=== PATIENT | female | born 1965 | race Caucasian/White ===

== ENCOUNTER → 2019-01-31 | Outpatient (CLI) | payer OTHER ==
[2016-11-25 11:12] VITALS: BP 158/84
[~2019-01-31] MED LIST: ALPR0.25 PO; CETI-17 PO; FEXO180T81 PO; LAMO200T25 PO; MELO15TA23 PO; NORE1TAB27 PO; PANT40TA3 PO; RANI-376 PO; TOPI100T8 PO; VILA40TA PO; ZOLP10TA4 PO
--- NOTE | 2019-01-31 17:13 | KCIC ---
Bilateral digital screening mammograms with 3-D tomosynthesis: Reason for examination: Routine screening. Comparison is made to previous studies dated 04/01/2016 and 01/18/2013. Bilateral mammograms in CC and oblique projections were obtained with 2-D imaging and 3-D tomosynthesis imaging on a Siemens Inspiration unit and reviewed on the workstation. Interpretation was made with the benefit of CAD. The skin and nipples show no abnormalities. No abnormal axillary lymph nodes are seen. Bilateral breast implants remain in place. The breast parenchyma shows scattered fatty and fibroglandular density. (Breast density: Category B.) There are no dominant masses, suspicious calcifications or architectural distortion. Impression: No evidence of malignancy. Recommend routine screening. BI-RAD Category 1: Negative. "Our facility is accredited by the [employer] Mammography [employer]." This patient's information has been entered into a reminder system for the patient to be notified with the results of her examination and a target date for the next mammogram. Electronically signed by: Ирина Marion MD (01/31/2019 5:11 PM) [id number]
== END | disposition home or self-care (01) ==
LOC: KCIC MAMMO 11:52
PROVIDERS: ATTEND Obstetrics & Gynecology
DX: Z12.31 Encounter for screening mammogram for malignant neoplasm of breast (principal)
CPT/HCPCS: 77063; 77067

== ENCOUNTER → 2019-12-27 | Outpatient (CLI) | payer OTHER ==
[2016-11-25 11:12] VITALS: BP 158/84
[~2019-12-27] MED LIST changes: -PANT40TA3 PO; +PANT40TA77 PO
[2019-12-27 15:24] LABS: FREE T4 0.89 ng/dL (0.76-1.46); THYROID STIM HORMONE (TSH) 1.363 uIU/mL (0.358-3.74)
[2019-12-27 16:05] LABS: ALBUMIN 3.3 g/dL (3.4-5.0); ALBUMIN/GLOBULIN RATIO 0.8 (1.0-1.7); CALCIUM 8.4 mg/dL (8.5-10.1); TOTAL BILIRUBIN 0.2 mg/dL (0.2-1.0); TOTAL PROTEIN 7.4 g/dL (6.4-8.2)
[2020-01-02 03:08] LABS: CODFISH <0.10 kU/L (Class 0); CORN 0.29 kU/L (Class 0/I); EGG WHITE 0.52 kU/L (Class I); MILK 0.88 kU/L (Class II); PEANUT 1.05 kU/L (Class II); SCALLOP <0.10 kU/L (Class 0); SHRIMP 0.55 kU/L (Class I); SOYBEAN 1.86 kU/L (Class III); WALNUT 0.31 kU/L (Class 0/I); WHEAT 0.72 kU/L (Class II)
== END | disposition home or self-care (01) ==
LOC: LAB 11:07
PROVIDERS: ATTEND Otolaryngology
DX: K14.6 Glossodynia (principal)
CPT/HCPCS: 36415; 80053; 82607; 82728; 82746; 83540; 83550; 84207; 84425; 84439; 84443; 84630; 86001

== ENCOUNTER → 2020-01-02 | Outpatient (CLI) | payer OTHER ==
[2016-11-25 11:12] VITALS: BP 158/84
--- NOTE | 2020-01-02 15:33 | EKG ---
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
[2020-01-02 16:06] LABS: BASO % 0 % (0-3); EOS # 0.8 x10^3/uL (0.0-0.7); EOS % 7 % (0-3); HEMATOCRIT 33.4 % (36.0-47.0); HEMOGLOBIN 10.5 g/dL (12.0-15.5); LYMPH # 3.2 x10^3/uL (1.0-4.8); LYMPH % 28 % (24-48); MEAN CORPUSCULAR HEMOGLOBIN 24 pg (25-35); MEAN CORPUSCULAR HGB CONC 32 g/dL (31-37); MEAN CORPUSCULAR VOLUME 75 fL (79-100); MONO % 9 % (0-9); NEUT # 6.3 x10^3/uL (1.8-7.7); NEUT % 56 % (31-73); PLATELET COUNT 477 x10^3/uL (140-400); RED BLOOD COUNT 4.47 x10^6/uL (3.50-5.40); RED CELL DISTRIBUTION WIDTH 16.3 % (11.5-14.5); WHITE BLOOD COUNT 11.2 x10^3/uL (4.0-11.0)
[2020-01-02 16:28] LABS: ALBUMIN 3.2 g/dL (3.4-5.0); ALBUMIN/GLOBULIN RATIO 0.8 (1.0-1.7); CALCIUM 7.9 mg/dL (8.5-10.1); CREATININE 0.9 mg/dL (0.6-1.0); GFR 65.5; TOTAL BILIRUBIN 0.2 mg/dL (0.2-1.0); TOTAL PROTEIN 7.3 g/dL (6.4-8.2)
== END | disposition home or self-care (01) ==
LOC: LAB 10:45
PROVIDERS: ATTEND Psychiatry & Neurology Neurology
DX: R06.02 Shortness of breath (principal); R06.00 Dyspnea, unspecified; G93.2 Benign intracranial hypertension; H53.8 Other visual disturbances
CPT/HCPCS: 36415; 80053; 84443; 85025; 85651; 86141; 93005

== ENCOUNTER → 2020-04-03 | Outpatient (CLI) | payer OTHER ==
[2016-11-25 11:12] VITALS: BP 158/84
[~2020-04-03] MED LIST changes: +GADOTERATE 5 MMOL/10ML VIAL. IVP ONE; +LAMO25TA5 PO; +LORA2ORA7 PO; +TOPI25TA52 PO; +VENL37.5 PO; +ZOLP5TAB PO
--- NOTE | 2020-04-03 15:01 | RAD ---
MRI Brain with and without contrast History:Chronic headaches, difficulty verbalizing thoughts, repeating herself, pseudotumor cerebri syndrome, blurred vision bilaterally, visual field defect Technique: Multiplanar, multi sequential pre and postcontrast MR imaging was performed of the brain. Comparison: Findings: There is some motion. There is no evidence of recent infarct or cytotoxic edema. The ventricles, sulci, and cisterns are within normal limits in size and configuration. There is no significant midline shift, intraaxial mass effect, or focal abnormal extra-axial fluid collection. There is minimal T2 and FLAIR hyperintense signal of the supratentorial parenchyma bilaterally not associated with enhancement. There is no nodular parenchymal or leptomeningeal enhancement. There is preservation of the major intracranial flow-voids at the skull base. The cerebellar tonsils are normal in location. There is no significant abnormality of the pineal gland or pituitary gland. There is minimal ethmoid air cell and left sigmoid sinus mucosal thickening. The mastoid air cells are aerated. There is preserved marrow signal of the clivus. Impression: 1. There is mild T2 and FLAIR hyperintense signal of the supratentorial parenchyma bilaterally. Nonspecific findings could be associated with chronic microvascular ischemic disease. White matter changes can be seen in patients with migraine headaches if corresponding history. Pattern is not particularly suggestive of an inflammatory demyelinating disease. MRA Brain History:Chronic headaches, difficulty verbalizing thoughts, repeating herself, pseudotumor cerebri syndrome, blurred vision bilaterally, visual field defect Technique: 3-D [id number] MR angiography was performed of the brain. Comparison: None Findings: Determination of any degree of stenosis is based on NASCET criteria. There is some motion degradation. Both vertebral arteries constitute the basilar artery. Region of PICAs was not entirely included on this exam, partial visualization on the left. There is visualization of segments bilateral AICAs and superior cerebellar arteries. There are patent posterior communicating arteries bilaterally. No significant anterior communicating artery is visualized. No significant intracranial stenosis or aneurysm is identified. Impression: 1. No significant intracranial stenosis or aneurysm is identified. MR venogram without contrast History:Chronic headaches, difficulty verbalizing thoughts, repeating herself, pseudotumor cerebri syndrome, blurred vision bilaterally, visual field defect TECHNIQUE: Noncontrast MR venography was performed of the head. Comparison: None. Findings: No occlusive defect is identified of the major venous sinuses. Impression: 1. No occlusive defect is identified of the major venous sinuses. Electronically signed by: Matias Varghese MD (04/03/2020 2:58 PM) [id number]
--- NOTE | 2020-04-03 15:36 | CARD ---
MR#: [id number] Date of Study: 04/03/2020 Ordering Physician: RIDDHI BRANCH, Referring Physician: RIDDHI BRANCH, Tech: Deysi Farris APPROVED REPORT EXAM: Two-dimensional and M-mode echocardiogram with Doppler and color Doppler. Other Information Quality : AverageHR: 74bpm Technically limited study due to body habitus. INDICATION Dyspnea 2D DIMENSIONS RVDd3.0 (2.9-3.5cm)Left Atrium(2D)3.2 (1.6-4.0cm) IVSd1.0 (0.7-1.1cm)Aortic Root(2D)2.8 (2.0-3.7cm) LVDd4.4 (3.9-5.9cm)LVOT Diameter1.9 (1.8-2.4cm) PWd1.0 (0.7-1.1cm)LVDs3.0 (2.5-4.0cm) FS (%) 33.2 %SV55.3 ml Aortic Valve AoV Peak Hima.135.6cm/sAoV VTI29.8cm AO Peak GR.7.4mmHgLVOT Peak Hima.95.3cm/s LVOT VTI 21.08cmAO Mean GR.4mmHg ROGER (VMAX)1.00nn2GFC (VTI)2.04cm2 Mitral Valve MV E Qsofwizf13.8cm/sMV DECEL BAVP930jq MV A Cwnzvjkp26.0cm/sMV IVK96kp E/A Ratio0.9MVA (PHT)3.70cm2 TDI E/Lateral E'8.9E/Medial E'9.6 Pulmonary Valve PV Peak Aisyjnfr840.9cm/sPV Peak Grad.5mmHg Tricuspid Valve TR P. Ddnyajtl223ez/sRAP IFXMDHAM1ncVa TR Peak Gr.69upZrSNUU67aqUe Pulmonary Vein S1 Dfxmetzj98.2cm/sD2 Xqyjqxiz79.5cm/s PVa sjbujbvp029dsxd LEFT VENTRICLE The left ventricle is normal size. There is borderline concentric left ventricular hypertrophy. The l eft ventricular systolic function is normal and the ejection fraction is within normal range. The Eje ction Fraction is 55-60%. There is normal LV segmental wall motion. Transmitral Doppler flow pattern is Grade II-pseudonormal filling dynamics. RIGHT VENTRICLE The right ventricle is normal size. There is normal right ventricular wall thickness. The right ventr icular systolic function is normal. ATRIA The left atrium size is normal. The right atrium size is normal. The interatrial septum is intact wit h no evidence for an atrial septal defect or patent foramen ovale as noted on 2-D or Doppler imaging. AORTIC VALVE The aortic valve is normal in structure and function. Doppler and Color Flow revealed no significant aortic regurgitation. There is no significant aortic valvular stenosis. MITRAL VALVE The mitral valve is thickened but opens well. There is no evidence of mitral valve prolapse. There is no mitral valve stenosis. Doppler and Color-flow revealed trace mitral regurgitation. TRICUSPID VALVE The tricuspid valve is normal in structure and function. Doppler and Color Flow revealed trace tricus pid regurgitation with an estimated PAP of 29 mmHg. There is no tricuspid valve stenosis. PULMONIC VALVE The pulmonic valve is not well visualized. Doppler and Color Flow revealed trace pulmonic valvular re gurgitation. GREAT VESSELS The aortic root is normal in size. The ascending aorta is normal in size. The IVC is normal in size a nd collapses >50% with inspiration. PERICARDIAL EFFUSION There is no evidence of significant pericardial effusion. Critical Notification Critical Value: No <Conclusion> The left ventricle is normal size. The left ventricular systolic function is normal and the ejection fraction is within normal range. The Ejection Fraction is 55-60%. There is borderline concentric left ventricular hypertrophy. Doppler and Color Flow revealed no significant aortic regurgitation. There is no significant aortic valvular stenosis. Doppler and Color-flow revealed trace mitral regurgitation. Doppler and Color Flow revealed trace tricuspid regurgitation with an estimated PAP of 29 mmHg. Signed by : Eyal Locke MD Electronically Approved : 04/03/2020 15:35:26
== END ==
LOC: MRI 11:50
PROVIDERS: ATTEND Psychiatry & Neurology Neurology
DX: I51.7 Cardiomegaly (principal); G93.2 Benign intracranial hypertension; H53.8 Other visual disturbances; H53.40 Unspecified visual field defects
CPT/HCPCS: 70544; 70553; 93306; A9575

== ENCOUNTER → 2020-05-13 | Outpatient (CLI) | payer OTHER ==
[2016-11-25 11:12] VITALS: BP 158/84
[~2020-05-13] MED LIST changes: -GADOTERATE 5 MMOL/10ML VIAL. IVP ONE; +IOHEXOL 180 MG/ML 10 ML VIAL. ONE; +MEDR10TA3 PO; +methylPREDNISolone ACETATE 40 MG/ML VIAL. ONE; +methylPREDNISolone ACETATE 80 MG/ML VIAL. ONE
--- NOTE | 2020-05-13 15:02 | PAIN ---
DATE OF SERVICE: 05/13/2020 PROGRESS NOTE FOR PAIN CLINIC DIAGNOSIS: Lumbar radiculopathy with lumbar degenerative disk disease. HISTORY OF PRESENT ILLNESS: The patient is a 55-year-old female who returns for followup status post previous lumbar epidural steroid injections, last seen 02/2016. The patient did very well with about a 75% improvement in her low back and bilateral lower extremity pain. The patient reports the pain is returning now over the past several months, but has been worse over the past 2-3 months in the back for about a year or so, increasing pain in the low back and bilateral lower extremities, mostly in the posterior hips and gluteus, lateral thighs, anterior thighs, some in the medial knees as well, right essentially equal to left; worse with walking, standing, changing positions; better with sitting down or lying down, but awakens her occasionally from sleep at night, but not every night. The patient reports it does not affect her bowel or bladder control or ability to walk, but she does have some increased fatigability of the lower extremities secondary to pain. The patient reports the pain is constant, sharp, and stabbing in the low back, sometimes shooting and aching in the lower extremities, but not constantly. The patient reports no loss of motor function, no new bowel or bladder incontinence or other motor function deficits at this time. The patient reports she has been treated for chronic migraine headaches as well with Neurology. REVIEW OF SYSTEMS: The patient's review of systems is positive for those items mentioned in history of present illness. All systems reviewed and otherwise negative. It is complete, full, and well documented on the patient's chart. PHYSICAL EXAMINATION: VITAL SIGNS: The patient's blood pressure is 150/95, pulse 88, respirations 18, temperature 98.8 degrees Fahrenheit, weight is 221 pounds. GENERAL: The patient is awake, alert, oriented, appropriate, very pleasant demeanor. HEENT: Shows normocephalic, atraumatic. Extraocular movements are intact and symmetrical. Oral cavity shows mucous membranes moist and pink. Dentition is intact. NECK: Shows anterior throat supple without palpable lymphadenopathy noted. Swallow reflex symmetrical. CHEST: Shows normal on inspection. Breath sounds are clear to auscultation bilaterally. No rales, rhonchi, or wheezes auscultated. HEART: Shows S1, S2 clear. No murmurs auscultated. ABDOMEN: Obese, soft, nontender, nondistended. No palpable organomegaly is noted. No rebound or guarding demonstrated. BACK: Shows spine grossly in the midline. Slight exaggerated thoracic kyphosis and minor flattening of lumbar lordotic curvature. Lumbar paraspinous muscle shows symmetrical on inspection, with palpation shows some moderate tenderness diffusely throughout the upper, middle, and lower distribution of paraspinous muscles as well as slightly into the inferior aspect of the thoracic paraspinous musculature bilaterally, but again symmetrical without evidence of atrophy, hypertrophy. No trigger points, no radiation of pain. The patient has good rotational motion of lumbar spine, both laterally as well as extension and flexion without difficulty. No tenderness over the spinous processes or the sacrum. Minor tenderness over the posterior superior iliac spines bilaterally, but without radiation. EXTREMITIES: The patient's lower extremities show deep tendon reflexes at 2+ in the patellar, 1+ tendo-calcaneus tendons. Motor exam is strong with dorsiflexion, extension, quadriceps, and hamstring flexion rated at 5/5 and equal. Peripheral pulses are 1+ posterior tibia. No peripheral edema is noted bilaterally. Options were discussed with the patient. The patient's old chart was reviewed as her current medication regimen updated. Current review of systems updated today as well. We will proceed with a lumbar epidural steroid injection today with fluoroscopic guidance. Risks were discussed including but not limited to bleeding, infection, possibility of epidural hematoma, subsequent neurological compromise, dural puncture, headaches, spinal cord and/or nerve damage, side effects of steroid medication and poor results regarding pain control. The patient understands and wished to proceed. The patient will return to clinic in approximately 2 weeks for followup. She was counseled on return appointment, activity level, and side effects to be aware of. DIAGNOSIS: Lumbar radiculopathy with lumbar degenerative disk disease. PROCEDURE: Lumbar epidural steroid injection, translaminar approach at L4-L5 level using C-arm fluoroscopic guidance under sterile prep and drape using local anesthetic. MEDICATION INJECTED: A total of 120 mg Depo-Medrol plus 10 mL of preservative-free normal saline and 2 mL of contrast. CONDITION AT DISCHARGE: Stable. The patient tolerated procedure well, had no complications. ANEUDY HUSSEIN MD DR: MARTHA/ana maria JOB#: [id number] / [id number]
== END | disposition home or self-care (01) ==
LOC: PNCL 13:26
PROVIDERS: ATTEND Anesthesiology
DX: M51.16 Intervertebral disc disorders with radiculopathy, lumbar region (principal); G43.909 Migraine, unspecified, not intractable, without status migrainosus; Z88.0 Allergy status to penicillin; Z79.899 Other long term (current) drug therapy
CPT/HCPCS: 62323; J1030; J1040; Q9965

== ENCOUNTER → 2020-07-01 | Outpatient (CLI) | payer OTHER ==
[2016-11-25 11:12] VITALS: BP 158/84
[~2020-07-01] MED LIST changes: -IOHEXOL 180 MG/ML 10 ML VIAL. ONE; -methylPREDNISolone ACETATE 40 MG/ML VIAL. ONE; -methylPREDNISolone ACETATE 80 MG/ML VIAL. ONE
== END | disposition home or self-care (01) ==
LOC: LAB 11:20
PROVIDERS: ATTEND Psychiatry & Neurology Neurology with Special Qualifications in Child Neurology
DX: R79.82 Elevated C-reactive protein (CRP) (principal)
CPT/HCPCS: 36415; 86140

== ENCOUNTER → 2020-08-15 | Outpatient (CLI) | payer OTHER ==
[2016-11-25 11:12] VITALS: BP 158/84
[~2020-08-15] MED LIST changes: +CETI10TA74 PO; +FAMO40TA4 PO; +FLUT16SP NS; +LITH450T PO; +ZOLP10TA PO
== END ==
LOC: LAB 14:08
PROVIDERS: ATTEND Ophthalmology
DX: Z01.812 Encounter for preprocedural laboratory examination (principal); Z20.828 Contact with and (suspected) exposure to other viral communicable diseases; H26.9 Unspecified cataract
CPT/HCPCS: U0003

== ENCOUNTER 2020-08-20 10:30 | Day surgery (SDC) | payer OTHER ==
[~2020-08-20 10:30] MED LIST changes: +CHONDROIT-SOD-HYALURONATE KIT. ONE; +CHONDROITIN-SOD-HYALURONATE 0.5 ML DISP.SYRIN. ONE; +CIPROFLOXACIN 0.3% OPHTH SOLUTION 5ML BOTTLE. OD ONE; +HYDROmorphone 2 MG/ML VIAL IV PRN; +IV RINGERS,LACTATED 1000ML 1,000 ML IV SCH; +LIDOCAINE 1%/PHENYLEPH 1.5% PF OPHTH 1 ML VIAL. ONE; +LIDOCAINE 2% JELLY 6ML IN APPLICATOR. OD ONE; +MORPHINE SULFATE 2 MG/ML VIAL. IV PRN; +NEO/POLYMYX/DEXAMETH OPHTH OINTMENT 3.5GM TUBE. ONE; +ONDANSETRON PF 4 MG/2 ML VIAL. IV PRN; +PROCHLORPERAZINE 10 MG/2 ML VIAL. IV PRN; +PROPARACAINE 0.5% OPHTH SOLUTION 15ML BOTTLE. OD ONE; +fentaNYL PF VIAL 100 MCG/2 ML VIAL IV PRN
[2020-08-20] MEDS: CYCLOPENTOLATE 1% OPHTH SOLUTION 2ML BOTTLE. OD SCH ×3 (11:02→11:12)
[2020-08-20] MEDS: PHENYLEPHRINE 10% OPHTH SOLUTION 5ML BOTTLE. OD SCH ×3 (11:02→11:12)
[2020-08-20] MEDS ORDERED: MIDAZOLAM HCL/PF 2 MG/2 ML VIAL. ONE (11:06)
[2020-08-20 13:15] VITALS: BP 156/76
--- NOTE | 2020-08-20 14:02 | OP ---
DATE OF SURGERY: 08/20/2020 PREOPERATIVE DIAGNOSIS: Cataract of the right eye. PROCEDURE: Phacoemulsification with posterior chamber intraocular lens implantation of the right eye. INDICATION: Painless progressive visual loss and difficulty reading and driving. SURGEON: Elba Iraheta MD ANESTHESIA: Topical with monitored anesthesia care. DESCRIPTION OF PROCEDURE: The right eye was prepped with Betadine in the usual sterile fashion and draped. A paracentesis was performed followed by instillation of preservative-free lidocaine admixed with phenylephrine and balanced salt solution. A temporal clear corneal incision was made followed by instillation of viscoelastic and a capsulorrhexis was performed. Hydrodissection was used to prolapse the nucleus at the pupillary plane and then evacuated with the phacoemulsification handpiece. The I/A handpiece was used to remove the remainder of the cortex and ir[place]i the capsule. Please note that the wang had been preplaced prior to the surgery to support an axis of 009. The lens, which was a TF Damian TFNT30 was injected into the capsular bag and the orientation was positioned at the preplaced wang at 009. Balanced salt solution was used to hydrate the corneal wounds and the viscoelastic was evacuated both posterior and anterior to the intraocular lens and once the lens was within the proper orientation and no leak was noted, Maxitrol was placed on the eye and the eye shielded and the patient was sent to the recovery room uneventfully. ELBA IRAHETA MD DR: ANAY/ana maria JOB#: [id number] / [id number]
== END 2020-08-20 13:45 | disposition home or self-care (01) ==
LOC: SURG 10:30
PROVIDERS: ATTEND Ophthalmology
DX: H26.8 Other specified cataract (principal); H54.7 Unspecified visual loss; Z88.0 Allergy status to penicillin; Z79.899 Other long term (current) drug therapy
CPT/HCPCS: 66984; 81025; J0171; J2250; J3490

== ENCOUNTER → 2020-08-27 | Day surgery (SDC) | payer OTHER ==
[~2020-08-27] MED LIST changes: +BALANCED SALT IRRIG OPHTH SOLN 15 ML BOTTLE. ONE; -CIPROFLOXACIN 0.3% OPHTH SOLUTION 5ML BOTTLE. OD ONE; +CIPROFLOXACIN 0.3% OPHTH SOLUTION 5ML BOTTLE. OS ONE; +GENTAMICIN SULFATE/PF 4 MG, EPINEPHrine 0.5 MG in BALANCED SALT IRR SOLN (BAG) 500 ML IO ONE; -LIDOCAINE 2% JELLY 6ML IN APPLICATOR. OD ONE; +LIDOCAINE 2% JELLY 6ML IN APPLICATOR. ONE; +LIDOCAINE 2% JELLY 6ML IN APPLICATOR. OS ONE; +MIDAZOLAM HCL/PF 2 MG/2 ML VIAL. ONE; -PROPARACAINE 0.5% OPHTH SOLUTION 15ML BOTTLE. OD ONE; +PROPARACAINE 0.5% OPHTH SOLUTION 15ML BOTTLE. OS ONE
[2020-08-27] MEDS: CYCLOPENTOLATE 2% OPHTH SOLUTION 2ML BOTTLE. OS SCH ×2 (11:39→11:45)
[2020-08-27] MEDS: PHENYLEPHRINE 10% OPHTH SOLUTION 5ML BOTTLE. OS SCH ×3 (11:39→11:50)
[2020-08-27 13:00] VITALS: BP 161/84
== END | disposition home or self-care (01) ==
LOC: SURG 10:49
PROVIDERS: ATTEND Ophthalmology
DX: H25.89 Other age-related cataract (principal); Z53.8 Procedure and treatment not carried out for other reasons; K21.9 Gastro-esophageal reflux disease without esophagitis; E66.09 Other obesity due to excess calories; M19.90 Unspecified osteoarthritis, unspecified site; F41.9 Anxiety disorder, unspecified; F32.9 Major depressive disorder, single episode, unspecified; Z79.899 Other long term (current) drug therapy; Z98.890 Other specified postprocedural states; Z88.0 Allergy status to penicillin
CPT/HCPCS: 81025; J2250; J3490; J0171; J1580

== ENCOUNTER 2020-08-29 10:25 | Day surgery (SDC) | payer OTHER ==
[~2020-08-29 10:25] MED LIST changes: +LIDOCAINE 1% PF 2 ML VIAL. ID PRN; -MIDAZOLAM HCL/PF 2 MG/2 ML VIAL. ONE
[2020-08-29] MEDS ORDERED: MIDAZOLAM HCL/PF 2 MG/2 ML VIAL. ONE ×2 (10:49→12:35)
[2020-08-29] MEDS: PHENYLEPHRINE 10% OPHTH SOLUTION 5ML BOTTLE. OS SCH ×3 (11:02→11:13)
[2020-08-29] MEDS: CYCLOPENTOLATE 2% OPHTH SOLUTION 2ML BOTTLE. OS SCH ×3 (11:15→11:25)
[2020-08-29 13:10] VITALS: BP 147/74
--- NOTE | 2020-08-29 13:31 | OP ---
DATE OF SURGERY: 08/29/2020 PREOPERATIVE DIAGNOSIS: Cataract of the left eye. PROCEDURE: Phacoemulsification with posterior chamber intraocular lens implantation of the left eye. INDICATION: Painless progressive visual loss and visually significant cataract and difficulty reading. SURGEON: Elba Iraheta MD ANESTHESIA: Topical with monitored anesthesia care. DESCRIPTION OF PROCEDURE: The left eye was prepped with Betadine in the usual sterile fashion and draped. A paracentesis was performed followed by instillation of preservative-free phenylephrine admixed with balanced salt solution. A temporal clear corneal incision was made and viscoelastic was injected in the anterior chamber. A capsulorrhexis was performed followed by hydroexpression of the nucleus to the pupillary plane for which a Viscoat sandwich was made both anterior and posterior to the nucleus. The phacoemulsification handpiece was used to remove the nucleus and the I/A handpiece used to remove the cortex. There was a vacuum the posterior capsule for the adherent capsular cataract. Viscoelastic was then injected in the capsular bag and an Damian model TFNT 00 with a power of 9.5 diopters was placed into the capsular bag. Balanced salt solution was used to hydrate the corneal wounds and the viscoelastic evacuated with the I/A handpiece. Once no leak was noted, Maxitrol was placed on the eye and the eye shielded and the patient was sent to the recovery room uneventfully. ELBA IRAHETA MD DR: ANAY/ana maria JOB#: [id number] / [id number]
== END 2020-08-29 13:50 | disposition home or self-care (01) ==
LOC: SURG 10:25
PROVIDERS: ATTEND Ophthalmology
DX: H25.89 Other age-related cataract (principal); H54.7 Unspecified visual loss; K21.9 Gastro-esophageal reflux disease without esophagitis; E66.9 Obesity, unspecified; F41.9 Anxiety disorder, unspecified; F32.9 Major depressive disorder, single episode, unspecified; M19.90 Unspecified osteoarthritis, unspecified site; Z88.0 Allergy status to penicillin; Z79.899 Other long term (current) drug therapy; Z98.890 Other specified postprocedural states
CPT/HCPCS: 66984; 81025; J0171; J1580; J2250; J3490; V2788

== ENCOUNTER → 2022-02-23 | Outpatient (CLI) | payer OTHER ==
[~2022-02-23] MED LIST changes: -BALANCED SALT IRRIG OPHTH SOLN 15 ML BOTTLE. ONE; -CHONDROIT-SOD-HYALURONATE KIT. ONE; -CHONDROITIN-SOD-HYALURONATE 0.5 ML DISP.SYRIN. ONE; -CIPROFLOXACIN 0.3% OPHTH SOLUTION 5ML BOTTLE. OS ONE; -GENTAMICIN SULFATE/PF 4 MG, EPINEPHrine 0.5 MG in BALANCED SALT IRR SOLN (BAG) 500 ML IO ONE; -HYDROmorphone 2 MG/ML VIAL IV PRN; -IV RINGERS,LACTATED 1000ML 1,000 ML IV SCH; -LIDOCAINE 1% PF 2 ML VIAL. ID PRN; -LIDOCAINE 1%/PHENYLEPH 1.5% PF OPHTH 1 ML VIAL. ONE; -LIDOCAINE 2% JELLY 6ML IN APPLICATOR. ONE; -LIDOCAINE 2% JELLY 6ML IN APPLICATOR. OS ONE; -MORPHINE SULFATE 2 MG/ML VIAL. IV PRN; -NEO/POLYMYX/DEXAMETH OPHTH OINTMENT 3.5GM TUBE. ONE; -ONDANSETRON PF 4 MG/2 ML VIAL. IV PRN; -PROCHLORPERAZINE 10 MG/2 ML VIAL. IV PRN; -PROPARACAINE 0.5% OPHTH SOLUTION 15ML BOTTLE. OS ONE; -fentaNYL PF VIAL 100 MCG/2 ML VIAL IV PRN
== END ==
LOC: LAB 15:42
PROVIDERS: ATTEND Psychiatry & Neurology Neurology with Special Qualifications in Child Neurology
DX: R79.82 Elevated C-reactive protein (CRP) (principal)
CPT/HCPCS: 36415; 86141

== ENCOUNTER → 2022-03-23 | Outpatient (CLI) | payer OTHER ==
[2022-03-23 13:50] LABS: BASO # 0.1 x10^3/uL (0.0-0.2); BASO % 1 % (0-3); EOS # 0.5 x10^3/uL (0.0-0.7); EOS % 5 % (0-3); HEMATOCRIT 33.6 % (36.0-47.0); HEMOGLOBIN 10.3 g/dL (12.0-15.5); LYMPH # 3.3 x10^3/uL (1.0-4.8); LYMPH % 32 % (24-48); MEAN CORPUSCULAR HEMOGLOBIN 21 pg (25-35); MEAN CORPUSCULAR HGB CONC 31 g/dL (31-37); MEAN CORPUSCULAR VOLUME 69 fL (79-100); MONO # 0.6 x10^3/uL (0.0-1.1); MONO % 6 % (0-9); NEUT # 5.9 x10^3/uL (1.8-7.7); NEUT % 57 % (31-73); PLATELET COUNT 433 x10^3/uL (140-400); RED BLOOD COUNT 4.87 x10^6/uL (3.50-5.40); RED CELL DISTRIBUTION WIDTH 18.1 % (11.5-14.5); WHITE BLOOD COUNT 10.5 x10^3/uL (4.0-11.0)
[2022-03-23 14:14] LABS: ALBUMIN 3.4 g/dL (3.4-5.0); ALBUMIN/GLOBULIN RATIO 0.8 (1.0-1.7); CALCIUM 8.4 mg/dL (8.5-10.1); CREATININE 1.1 mg/dL (0.6-1.0); GFR 51.4; POTASSIUM 4.1 mmol/L (3.5-5.1); TOTAL BILIRUBIN 0.4 mg/dL (0.2-1.0); TOTAL PROTEIN 7.8 g/dL (6.4-8.2)
[2022-03-23 14:17] LABS: HYPOCHROMIA SLIGHT; PLT ESTIMATE INCREASED (ADEQUATE)
[2022-03-23 14:18] LABS: ANISOCYTOSIS SLIGHT; MICROCYTOSIS SLIGHT
[2022-03-23 14:40] LABS: CHOLESTEROL/HDL RATIO 4.5
== END ==
LOC: LAB 13:30
PROVIDERS: ATTEND Obstetrics & Gynecology
DX: Z01.419 Encounter for gynecological examination (general) (routine) without abnormal findings (principal); Z11.51 Encounter for screening for human papillomavirus (HPV)
CPT/HCPCS: 36415; 80053; 80061; 84443; 85025